=== PATIENT | male | born 1980 | race Caucasian/White ===

== ENCOUNTER 2020-09-20 09:29 | Emergency (ER) | payer OTHER ==
[2020-09-20 09:43] VITALS: BP 130/71
--- NOTE | 2020-09-20 10:14 | ED Physician Documentation ---
History of Present Illness - Stated complaint Stated Complaint: MALE - Chief complaint Chief Complaint: General - History obtained from History obtained from: Patient - Additonal information Additional information: About 2 weeks of groin and pelvic pain, worse with sitting and better with ambulation. He started a keto diet around the same time and was constipated, but has since taken a laxative and that is improved. He notes some bladder spasms and increased urine output but no dysuria per se. No fevers. Review of Systems Ten Systems: 10 systems reviewed and negative Constitutional: denies: Fever, Chills Nose: reports: Reviewed and negative Throat: reports: Reviewed and negative Cardiac: reports: Reviewed and negative PD PAST MEDICAL HISTORY - Present Medications Home Medications: Ambulatory Orders Medication Instructions Recorded Confirmed Ciprofloxacin HCl 1 tablet PO BID 28 Days #56 tablet 09/20/20 - Allergies Allergies/Adverse Reactions: Allergies Allergy/AdvReac Type Severity Reaction Status Date / Time No Known Drug Allergies Allergy Verified 09/20/20 09:43 PD ED PE NORMAL - Vitals Vital signs reviewed: Yes - General General: Alert and oriented X 3, No acute distress - Male Male : Other (Testicles have normal lie, nontender, no hernia mass, no skin changes in the groin. Does have a tender boggy prostate without masses otherwise.) - Neuro Neuro: Alert and oriented X 3, Normal speech Results - Vitals Vitals: Vital Signs - 24 hr 09/20/20 09:39 Temperature 36.5 C Heart Rate 66 Respiratory 14 Rate Blood Pressure 130/71 O2 Saturation 99 Oxygen O2 Source Room air Departure - Departure Disposition: 01 Home, Self Care Clinical Impression: Prostatitis Qualifiers: Prostatitis type: acute Qualified Code(s): N41.0 - Acute prostatitis Condition: Good Record reviewed to determine appropriate education?: Yes Instructions: ED Prostatitis Prescriptions: Ciprofloxacin HCl 1 tablet PO BID 28 Days #56 tablet Comments: As discussed you clinically have prostatitis, and inflammation of the prostate. Should get better quickly with the antibiotics. Return for reevaluation if not better within a few days to week. [place] Also as discussed do not do any high impact exercise given the transient tendon weakness that may happen with the antibiotic.
== END 2020-09-20 10:21 | disposition home or self-care (01) ==
LOC: ED 09:29
DX: N41.0 Acute prostatitis (principal)
CPT/HCPCS: 99282; 99283

== ENCOUNTER 2021-02-06 12:03 | Observation (INO) | payer OTHER ==
[2021-02-06] MEDS ORDERED: PANTOPRAZOLE 40 MG VIAL IVP STA (12:30)
[2021-02-06] MEDS ORDERED: SODIUM CHLORIDE 0.9% 1,000 ML IV STA ×2 (12:31→14:09)
--- NOTE | 2021-02-06 12:39 | ED Physician Documentation ---
PD HPI GI BLEED - Stated complaint Stated Complaint: VOMITING BLOOD, BLACK STOOL, WEAK - Chief complaint Chief Complaint: Abd Pain - History obtained from History obtained from: Patient - History of Present Illness Timing - onset: How many days ago (2) Timing - duration: Days (2) Timing - details: Gradual onset, Still present Associated symptoms: Vomiting, Hematemesis, Black/tarry stool, Abdominal pain, Near syncope / syncope Contributing factors: Recent antibiotics, Alcohol use, NSAID use Improved by: Vomiting Similar symptoms before: Has not had sx before Recently seen: Clinic - Additional information Additional information: 41-year-old male being treated for prostatitis has been taking Naprosyn for the past week as well as drinking his usual bottle of wine per day. Over the past 3 days he is developed a bit of an abdominal discomfort being unable to sleep on his stomach. He began to have vomiting last night he has vomited some blood today as well as developing dark tarry stool yesterday. Is feeling weak and dizzy and in the triage area the patient had an event of decreased responsiveness was stiff and wet himself. He presents to the emergency department pale and with altered level of consciousness. This resolves with supine positioning. Review of Systems Constitutional: denies: Fever Eyes: denies: Decreased vision Ears: denies: Ear pain Nose: denies: Congestion Throat: denies: Sore throat Cardiac: denies: Chest pain / pressure, Palpitations Respiratory: denies: Dyspnea GI: reports: Abdominal Pain, Nausea, Vomiting, Bloody / black stool : denies: Dysuria, Frequency Skin: denies: Rash Musculoskeletal: denies: Neck pain, Back pain, Extremity pain Neurologic: reports: Generalized weakness, Seizure, Confused. denies: Focal weakness, Numbness PD PAST MEDICAL HISTORY - Present Medications Home Medications: Ambulatory Orders Medication Instructions Recorded Confirmed Ciprofloxacin HCl 1 tablet PO BID 28 Days #56 tablet 09/20/20 - Allergies Allergies/Adverse Reactions: Allergies Allergy/AdvReac Type Severity Reaction Status Date / Time No Known Drug Allergies Allergy Verified 02/06/21 12:23 - Social History Does the pt smoke?: No Smoking Status: Never smoker PD ED PE NORMAL - Vitals Vital signs reviewed: Yes (tachy ) - General General: Well developed/nourished, Other (Initial evaluation patient with pale lips and not interactive. Appears to be siezing. This resolves and the patient is placed into a bed supine with recovery. ) - HEENT HEENT: Atraumatic, PERRL, EOMI, Other (pale lips and conjunctiva) - Neck Neck: Supple, no meningeal sign, No bony TTP - Cardiac Cardiac: No murmur, Other (tachy to 120) - Respiratory Respiratory: No respiratory distress, Clear bilaterally - Abdomen Abdomen: Normal bowel sounds, Soft, Non tender, Non distended, No organomegaly - Derm Derm: Warm and dry, No rash, Other (pale and clammy) - Extremities Extremities: No deformity, No edema - Neuro Neuro: Alert and oriented X 3, ice sculptor 2-12 intact, No motor deficit, No sensory deficit, Normal speech Eye Opening: Spontaneous Motor: Obeys Commands Verbal: Oriented GCS Score: 15 - Psych Psych: Normal mood, Normal affect Results - Vitals Vitals: Vital Signs - 24 hr 02/06/21 02/06/21 02/06/21 12:12 12:23 12:24 Temperature 37.0 C Heart Rate 119 H 84 84 Heart Rate [ Sitting] Heart Rate [ Standing] Heart Rate [ Supine] Respiratory 18 23 21 Rate Blood Pressure 105/69 111/69 117/63 Blood Pressure [Sitting] Blood Pressure [Standing] Blood Pressure [Supine] O2 Saturation 99 99 96 02/06/21 02/06/21 02/06/21 12:54 13:24 14:00 Temperature Heart Rate 94 62 82 Heart Rate [ Sitting] Heart Rate [ Standing] Heart Rate [ Supine] Respiratory 24 27 H 20 Rate Blood Pressure 124/73 105/58 L 121/68 Blood Pressure [Sitting] Blood Pressure [Standing] Blood Pressure [Supine] O2 Saturation 97 99 98 02/06/21 02/06/21 02/06/21 14:30 15:00 15:30 Temperature Heart Rate 77 77 97 Heart Rate [ Sitting] Heart Rate [ Standing] Heart Rate [ Supine] Respiratory 24 23 22 Rate Blood Pressure 121/52 L 104/58 L 110/73 Blood Pressure [Sitting] Blood Pressure [Standing] Blood Pressure [Supine] O2 Saturation 96 97 99 02/06/21 02/06/21 15:37 16:00 Temperature Heart Rate 86 Heart Rate [ 109 H Sitting] Heart Rate [ 120 H Standing] Heart Rate [ 98 Supine] Respiratory 17 Rate Blood Pressure 116/58 L Blood Pressure 125/77 [Sitting] Blood Pressure 117/66 [Standing] Blood Pressure 134/72 H [Supine] O2 Saturation 97 Oxygen O2 Source Room air - Labs Labs: Laboratory Tests 02/06/21 02/06/21 02/06/21 12:30 12:30 12:30 WBC 17.8 H RBC 3.34 L Hgb 10.7 L Hct 32.2 L MCV 96.4 H MCH 32.0 H MCHC 33.2 RDW 12.4 Plt Count 255 MPV 10.8 Neut # (Auto) 14.1 H Lymph # (Auto) 2.4 [place] # (Auto) 1.1 H Eos # (Auto) 0.0 Baso # (Auto) 0.1 Absolute Nucleated RBC 0.00 Nucleated RBC % 0.0 PT 11.8 INR 1.1 APTT 22.9 L Sodium 134 L Potassium 4.7 Chloride 102 Carbon Dioxide 22 Anion Gap 10.0 BUN 55 H Creatinine 0.9 Estimated GFR (MDRD) 93 Glucose 173 H Calcium 8.4 L Total Bilirubin 1.3 H AST 23 ALT 45 Alkaline Phosphatase 67 Total Protein 6.6 L Albumin 3.7 Globulin 2.9 Albumin/Globulin Ratio 1.3 Lipase 18 L Urine Color Urine Clarity Urine pH Ur Specific [place] Urine Protein Urine Glucose (UA) Urine Ketones Urine Occult Blood Urine Nitrite Urine Bilirubin Urine Urobilinogen Ur Leukocyte Esterase Ur Microscopic Review Urine Culture Comments Nasal Adenovirus (PCR) Nasal B. parapertussis DNA (PCR) Nasal Coronavir 229E PCR Nasal Coronavir HKU1 PCR Nasal Coronavir NL63 PCR Nasal Coronavir OC43 PCR Nasal Enterovir/Rhinovir PCR Nasal Influenza B PCR Nasal Influenza A PCR Nasal Parainfluen 1 PCR Nasal Parainfluen 2 PCR Nasal Parainfluen 3 PCR Nasal Parainfluen 4 PCR Nasal RSV (PCR) Nasal B.pertussis DNA PCR Nasal C.pneumoniae (PCR) [place] Human Metapneumo PCR Nasal M.pneumoniae (PCR) Nasal SARS-CoV-2 (PCR) Ethyl Alcohol Blood Type Blood Type Recheck Antibody Screen Crossmatch IS Only 02/06/21 02/06/21 02/06/21 12:30 12:34 12:45 WBC RBC Hgb Hct MCV MCH MCHC RDW Plt Count MPV Neut # (Auto) Lymph # (Auto) [place] # (Auto) Eos # (Auto) Baso # (Auto) Absolute Nucleated RBC Nucleated RBC % PT INR APTT Sodium Potassium Chloride Carbon Dioxide Anion Gap BUN Creatinine Estimated GFR (MDRD) Glucose Calcium Total Bilirubin AST ALT Alkaline Phosphatase Total Protein Albumin Globulin Albumin/Globulin Ratio Lipase Urine Color Urine Clarity Urine pH Ur Specific [place] Urine Protein Urine Glucose (UA) Urine Ketones Urine Occult Blood Urine Nitrite Urine Bilirubin Urine Urobilinogen Ur Leukocyte Esterase Ur Microscopic Review Urine Culture Comments Nasal Adenovirus (PCR) NOT DETECTED Nasal B. parapertussis DNA (PCR) NOT DETECTED Nasal Coronavir 229E PCR NOT DETECTED Nasal Coronavir HKU1 PCR NOT DETECTED Nasal Coronavir NL63 PCR NOT DETECTED Nasal Coronavir OC43 PCR NOT DETECTED Nasal Enterovir/Rhinovir PCR NOT DETECTED Nasal Influenza B PCR NOT DETECTED Nasal Influenza A PCR NOT DETECTED Nasal Parainfluen 1 PCR NOT DETECTED Nasal Parainfluen 2 PCR NOT DETECTED Nasal Parainfluen 3 PCR NOT DETECTED Nasal Parainfluen 4 PCR NOT DETECTED Nasal RSV (PCR) NOT DETECTED Nasal B.pertussis DNA PCR NOT DETECTED Nasal C.pneumoniae (PCR) NOT DETECTED [place] Human Metapneumo PCR NOT DETECTED Nasal M.pneumoniae (PCR) NOT DETECTED Nasal SARS-CoV-2 (PCR) NOT DETECTED Ethyl Alcohol < 5.0 Blood Type O POSITIVE Blood Type Recheck Antibody Screen NEGATIVE Crossmatch IS Only See Detail 02/06/21 02/06/21 02/06/21 13:26 15:00 15:34 WBC RBC Hgb 10.0 L Hct 30.0 L MCV MCH MCHC RDW Plt Count MPV Neut # (Auto) Lymph # (Auto) [place] # (Auto) Eos # (Auto) Baso # (Auto) Absolute Nucleated RBC Nucleated RBC % PT INR APTT Sodium Potassium Chloride Carbon Dioxide Anion Gap BUN Creatinine Estimated GFR (MDRD) Glucose Calcium Total Bilirubin AST ALT Alkaline Phosphatase Total Protein Albumin Globulin Albumin/Globulin Ratio Lipase Urine Color YELLOW Urine Clarity CLEAR Urine pH 5.5 Ur Specific [place] 1.010 Urine Protein NEGATIVE Urine Glucose (UA) NEGATIVE Urine Ketones 15 H Urine Occult Blood NEGATIVE Urine Nitrite NEGATIVE Urine Bilirubin NEGATIVE Urine Urobilinogen 0.2 (NORMAL) Ur Leukocyte Esterase NEGATIVE Ur Microscopic Review NOT INDICATED Urine Culture Comments NOT INDICATED Nasal Adenovirus (PCR) Nasal B. parapertussis DNA (PCR) Nasal Coronavir 229E PCR Nasal Coronavir HKU1 PCR Nasal Coronavir NL63 PCR Nasal Coronavir OC43 PCR Nasal Enterovir/Rhinovir PCR Nasal Influenza B PCR Nasal Influenza A PCR Nasal Parainfluen 1 PCR Nasal Parainfluen 2 PCR Nasal Parainfluen 3 PCR Nasal Parainfluen 4 PCR Nasal RSV (PCR) Nasal B.pertussis DNA PCR Nasal C.pneumoniae (PCR) [place] Human Metapneumo PCR Nasal M.pneumoniae (PCR) Nasal SARS-CoV-2 (PCR) Ethyl Alcohol Blood Type Blood Type Recheck O POSITIVE Antibody Screen Crossmatch IS Only Procedures - IVC sono (time) 1327 Bedside IVC sono: IVC measures (cm) (0.75), Dehydration (est 2+ liter deficit after 500ml in.) PD MEDICAL DECISION MAKING - ED course Complexity details: reviewed old records, reviewed results, re-evaluated patient, considered differential, d/w patient ED course: I was called in urgently to the patient's room when he had an episode at triage of unresponsiveness when I arrived into the emergency department room the patient appeared pale and diaphoretic and he had wet himself. He was not initially responding he did respond in less than 30 seconds and he is placed supine onto a gurney and 2 IVs were placed fluid was begun. He did not at any time have hypotension and his heart rate peaked at about 120. His initial H&H were robust and he was hydrated further and labs repeated. Blood counts appear stable. He remains orthostatic after 2 liters with a heart rate of 120 standing and a wide pulse pressure. He has been given IV protonix. Despite pale lips the patient reports he feels improved. Dr. Okeefe was consulted in the case and has graciously agreed to care for the patient in the hospital. - Critical Care Time Includes: Direct patient care, Review records, Reassess patient, Document care, Coordinate care, Medical consult Data interpretation: Labs, Pulse ox Procedures included in critical care time: See progress note (interrogation of IVC) Departure - Departure Disposition: ED Place in Observation Clinical Impression: GI bleeding Qualifiers: GI bleed type/associated pathology: gastrointestinal hemorrhage with hematemesis Qualified Code(s): K92.0 - Hematemesis Condition: Serious
[2021-02-06 12:50] LABS: BASOPHILS # (AUTO) 0.1 10^3/uL (0.0-0.1); BASOPHILS % (AUTO) 0.4 %; EOSINOPHILS % (AUTO) 0.1 %; HCT - HEMATOCRIT 32.2 % (42.0-52.0); HGB - HEMOGLOBIN 10.7 g/dL (14.0-18.0); LYMPHOCYTES # (AUTO) 2.4 10^3/uL (1.5-3.5); LYMPHOCYTES % (AUTO) 13.2 %; MEAN CORPUSCULAR HGB CONC 33.2 g/dL (32.0-36.0); MEAN CORPUSCULAR VOLUME 96.4 fL (80.0-94.0); MEAN PLATELET VOLUME 10.8 fL (7.4-11.4); MONOCYTES # (AUTO) 1.1 10^3/uL (0.0-1.0); MONOCYTES % (AUTO) 6.4 %; NEUTROPHILS # (AUTO) 14.1 10^3/uL (1.5-6.6); NEUTROPHILS % (AUTO) 79.2 %; PLT - PLATELET COUNT 255 10^3/uL (130-450); RED BLOOD COUNT 3.34 10^6/uL (4.70-6.10); RED CELL DISTRIBUTION WIDTH 12.4 % (12.0-15.0); WHITE BLOOD COUNT 17.8 x10^3/uL (4.8-10.8)
[2021-02-06 12:56] LABS: ALBUMIN 3.7 g/dL (3.2-5.5); ALBUMIN/GLOBULIN RATIO 1.3 (1.0-2.2); BILIRUBIN,TOTAL 1.3 mg/dL (0.2-1.0); CALCIUM 8.4 mg/dL (8.5-10.3); CREATININE 0.9 mg/dL (0.6-1.2); POTASSIUM 4.7 mmol/L (3.5-5.0); TOTAL PROTEIN 6.6 g/dL (6.7-8.2)
[2021-02-06 14:06] LABS: INR 1.1 (0.8-1.2); PT - PROTHROMBIN TIME 11.8 secs (9.9-12.6)
[2021-02-06 14:11] LABS: B. PARAPERTUSSIS- RESP PCR PAN NOT DETECTED; B. PERTUSSIS- RESP PCR PANEL NOT DETECTED; C. PNEUMONIAE- RESP PCR PANEL NOT DETECTED; CORONAVIRUS 229E-RESP PCR NOT DETECTED; CORONAVIRUS HKU1-RESP PCR NOT DETECTED; CORONAVIRUS NL63-RESP PCR NOT DETECTED; CORONAVIRUS OC43-RESP PCR NOT DETECTED; HUMAN METAPNEUMOVIRUS NOT DETECTED; INFLUENZA A- RESP PCR PANEL NOT DETECTED; INFLUENZA B - RESP PCR PANEL NOT DETECTED; M. PNEUMONIAE- RESP PCR PANEL NOT DETECTED; PARAINFLUENZA VIRUS 1 NOT DETECTED; PARAINFLUENZA VIRUS 2 NOT DETECTED; PARAINFLUENZA VIRUS 3 NOT DETECTED; PARAINFLUENZA VIRUS 4 NOT DETECTED; RHINOVIRUS/ENTEROVIRUS NOT DETECTED; RSV- RESP PCR PANEL NOT DETECTED; SARS-CoV-2 -RESP PCR PANEL NOT DETECTED
[2021-02-06 14:14] LABS: PARTIAL THROMBOPLASTIN TIME 22.9 secs (24.9-33.3)
[2021-02-06] MEDS ORDERED: ACETAMINOPHEN 325 MG TABLET PO PRN (15:46)
[2021-02-06] MEDS ORDERED: ONDANSETRON 4 MG/2 ML VIAL IVP PRN (15:46)
[2021-02-06] MEDS ORDERED: MORPHINE 2 MG/ML CARPUJECT IVP PRN (15:46)
[2021-02-06] MEDS ORDERED: SODIUM CHLORIDE FLUSH 0.9% 10 ML SYRINGE IVP PRN (15:46)
[2021-02-06] MEDS ORDERED: ONDANSETRON ODT 4 MG TABLET TL PRN (15:46)
[2021-02-06] MEDS ORDERED: oxyCODONE 5 MG TABLET PO PRN (15:46)
[2021-02-06 15:53] LABS: BILIRUBIN,URINE NEGATIVE (NEGATIVE); GLUCOSE, URINE (UA) NEGATIVE (NEGATIVE); KETONES,URINE (UA) 15 mg/dL (NEGATIVE); LEUKOCYTE ESTERASE, URINE NEGATIVE (NEGATIVE); NITRITE,URINE NEGATIVE (NEGATIVE); OCCULT BLOOD,URINE NEGATIVE (NEGATIVE); PH,URINE 5.5 PH (5.0-7.5); PROTEIN,URINE NEGATIVE (NEGATIVE); UROBILINOGEN,URINE 0.2 (NORMAL) E.U./dL (NORMAL)
[2021-02-06 15:59] LABS: CLARITY,URINE CLEAR (CLEAR)
[2021-02-06] MEDS: LACTATED RINGERS 1,000 ML IV SCH ×2 (16:45→20:07)
[2021-02-06] MEDS ORDERED: MIDAZOLAM 2 MG/2 ML VIAL ONE (16:45)
[2021-02-06] MEDS ORDERED: fentaNYL 100 MCG/2 ML VIAL ONE (16:46)
--- NOTE | 2021-02-06 16:46 | ANESTHESIA ---
Pre-Anesthesia VS, & Labs - Diagnosis upper GI bleed - Procedure EGD Vital Signs: Temp Pulse Resp BP Pulse Ox 37.0 C 107 H 21 106/86 H 98 02/06/21 12:12 02/06/21 16:30 02/06/21 16:30 02/06/21 16:30 02/06/21 16:30 Height: 6 ft Weight (kg): 108.862 kg Body Mass Index: 32.5 BMI Classification: Obese - NPO >8 hours - Lab Results Current Lab Results: Laboratory Tests 02/06/21 15:00: Hgb 10.0 L, Hct 30.0 L 02/06/21 13:26: Blood Type Recheck O POSITIVE 02/06/21 12:45: Blood Type O POSITIVE, Antibody Screen NEGATIVE, Crossmatch IS Only See Detail 02/06/21 12:30: Ethyl Alcohol < 5.0 02/06/21 12:30: PT 11.8, INR 1.1, APTT 22.9 L 02/06/21 12:30: Sodium 134 L, Potassium 4.7, Chloride 102, Carbon Dioxide 22, Anion Gap 10.0, BUN 55 H, Creatinine 0.9, Estimated GFR (MDRD) 93, Glucose 173 H , Calcium 8.4 L, Total Bilirubin 1.3 H, AST 23, ALT 45, Alkaline Phosphatase 67, Total Protein 6.6 L, Albumin 3.7, Globulin 2.9, Albumin/Globulin Ratio 1.3, Lipase 18 L 02/06/21 12:30: WBC 17.8 H, RBC 3.34 L, Hgb 10.7 L, Hct 32.2 L, MCV 96.4 H, MCH 32.0 H, MCHC 33.2, RDW 12.4, Plt Count 255, MPV 10.8, Neut # (Auto) 14.1 H, Lymph # (Auto) 2.4, [place] # (Auto) 1.1 H, Eos # (Auto) 0.0, Baso # (Auto) 0.1, Absolute Nucleated RBC 0.00, Nucleated RBC % 0.0 Fish Bones: 02/06/21 15:00 02/06/21 12:30 Home Medications and Allergies Active Medications Acetaminophen (Acetaminophen 325 Mg Tablet) 650 mg PO Q4HR PRN PRN Reason: Pain 1 to 4 Lactated Ringer's (Lr) 1,000 mls @ 100 mls/hr IV .Q10H ATA Morphine Sulfate (Morphine 2 Mg/Ml Carpuject) 2 mg IVP Q2HR PRN PRN Reason: Pain 8 to 10 Ondansetron HCl (Ondansetron Odt 4 Mg Tablet) 4 mg TL Q6HR PRN PRN Reason: Nausea / Vomiting Ondansetron HCl (Ondansetron 4 Mg/2 Ml Vial) 4 mg IVP Q6HR PRN PRN Reason: Nausea / Vomiting Oxycodone HCl (Oxycodone 5 Mg Tablet) 5 mg PO Q4HR PRN PRN Reason: Pain 5 to 7 Pantoprazole Sodium (Pantoprazole 40 Mg Vial) 40 mg IVP BID ATA Sodium Chloride (Sodium Chloride Flush 0.9% 10 Ml Syringe) 10 ml IVP PRN PRN PRN Reason: NEEDED PER PROVIDER ORDERS Sodium Chloride (Sodium Chloride Flush 0.9% 10 Ml Syringe) 10 ml IVP 0100 ,0900,1700 [facility] Allergies/Adverse Reactions: Allergies Allergy/AdvReac Type Severity Reaction Status Date / Time No Known Drug Allergies Allergy Verified 02/06/21 12:23 Anes History & Medical History - Anesthetic History Anesthesia Complications: reports: No previous complications Family history of Anesthesia Complications: Denies Family history of Malignant Hyperthermia: Denies - Medical History Smoking Status: Never smoker Psychosocial: reports: Alcohol History of Cancer?: No Exam General: Alert, Oriented x3, Cooperative Dental: WNL Mouth Openin Fingerbreadth Neck Mobility: Normal Mallampati classification: II Thyromental Distance: less than 4 cm Respiratory: Lungs clear, Normal breath sounds, No respiratory distress Cardiovascular: Regular rate (tachy) Neurological: Normal speech Mental/Cognitive Status: Alert/Oriented X3, Normal for patient Cognitive Status: Within normal limits Plan Anesthesia Type: Total IV Consent for Procedure(s) Verified and Reviewed: Yes Code Status: Attempt Resuscitation ASA classification: 2-Mild systemic disease Is this case an emergency?: Yes
[2021-02-06] MEDS ORDERED: PROPOFOL 200 MG/20 ML VIAL IVP ONE (16:47)
--- NOTE | 2021-02-06 16:48 | HISTORY & PHYSICAL EXAMINATION ---
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 He drinks 2 glasses of wine a day. Does not smoke. Starting in August of this year began having urgency, frequency, and rectal pain. Pain in the perineum. He was treated as prostatitis by the ER and was seen in follow-up by the [facility]. Even though he took a month of antibiotics, he finds that he still has constant daily nagging pain in the perineum and base of his testicles. He describes it as the circular ring of a cough he can around the base of his testicles and that is where the pain is. It hurts to sit. It is enough of a discomfort that it has made him mildly depressed. Its affect his sex life with his . And is affected his marriage. He had blood work and a urinalysis done recently by the [facility] again in follow-up since he is still having that problem. He was put on Cipro and has been taking Naprosyn for the pain. About 3 days ago he started developing darker and darker stools. Yesterday diffuse generalized abdominal ache predominantly in the lower half of his abdomen. It hurt to lay down on his stomach last night. Yesterday his stool was melanotic. Today he has been vomiting and had an episode of vomiting blood. He came to the emergency room, and had an episode where his body stiffened, his eyes rolled back and he lost consciousness with urinary incontinence. It lasted a moment. There was no tonic-clonic movement. And he was immediately alert when he regained consciousness moments later. Temperature was 37. Heart rate 119. Blood pressure 105/69. Respirations 18. 99% on room air. After the episode of syncope they did orthostatics and his blood pressure was 134/72 supine. 125/77 sitting. And 117/66 standing. Heart rate for from 98 to then 109 to then 120. So he was orthostatic. He is alert and oriented. Obeying commands. Has normal bowel sounds. Is soft, nontender abdomen. No organomegaly. Hemoglobin was 10.7. 3 hours later was 10.0. We are asked to place him in observation status for ruling out a GI bleed, and for possible EGD with general surgery. The patient states he is never had problems with alcohol withdrawal, seizures, delirium tremens. History - Past Medical History Cardiovascular: reports: None Respiratory: reports: None Neuro: reports: None Endocrine/Autoimmune: reports: None GI: reports: GERD (Daily indigestion getting worse over the last few weeks.) : reports: Other (Prostatitis August 2020) HEENT: reports: None Psych: reports: None Musculoskeletal: reports: None Derm: reports: Other (Skin tag right posterior thigh that has been present for years and getting larger) - Family & Social History Family History Comment/Other: At age 65. He had prostate cancer and of a heart attack. Mom is alive, healthy at 67 without any major medical illnesses. Siblings healthy. 3 children are healthy. Living arrangement: At home Living Situation: With spouse/s.o., With family Social History Notes: From [place]. He is career [employer]. Has 1 more duty station after this and then he can retire. Does not smoke. Never did. Has no history of recreational substance abuse. Does drink up to 2 glasses of wine a day. He denies that anyone is asked him to stop drinking. He states his drinks as much as he does. Neck duty station will be [place] starting next summer. Has 3 children at home. Two are teenagers and one is a 5-year-old. - Substance History Use: Uses substance without health or social issues: Alcohol Abuse: Recurrent use of substance despite neg consequences: NONE Dependence: Experiences withdrawal or developed tolerances: NONE - POLST Patient has POLST: No POLST Status: Full Code Meds/Allgy - Home Medications Home Medications: Ambulatory Orders Medication Instructions Recorded Confirmed Ciprofloxacin HCl 1 tablet PO BID 28 Days #56 tablet 09/20/20 - Allergies Allergies/Adverse Reactions: Allergies Allergy/AdvReac Type Severity Reaction Status Date / Time No Known Drug Allergies Allergy Verified 02/06/21 12:23 Review of Systems - Constitutional Constitutional: reports: Fatigue, Poor appetite. denies: Fever, Chills, Malaise - Eyes Eyes: denies: Pain, Irritation, Amaurosis, Blurred vision, Vision loss, Dipolpia - Ears, Nose & Throat Ears, Nose & Throat: denies: Hearing loss, Hearing aids, Nasal obstruction, Nasal congestion, Postnasal drainage, Sore throat, Hoarseness - Cardiovascular Cariovascular: reports: Lightheadedness, Syncope. denies: Irregular heart rate, Palpitations, Chest pain, Edema, Exertional dyspnea, Decr. exercise tolerance - Respiratory Respiratory: denies: Cough, Sputum production, Wheezing, Snoring, SOB at rest, SOB with exertion - Gastrointestinal Gastrointestinal: reports: Abdominal pain (Mild to moderate, generalized starting last night. Hurt to lay on his abdomen.), Black stools, Nausea, Vomiting, Deepa blood emesis, Reflux/heartburn, Bloating. denies: Diarrhea, Rectal bleeding, Coffee grounds emesis, Poor appetite - Genitourinary Genitourinary: reports: Dysuria, Frequency, Urgency - Musculoskeletal Musculoskeletal: denies: Muscle pain, Back pain, Muscle aches, Stiffness - Integumentary Integumentary: denies: Rash, Pruritis, Lesions - Neurological Neurological: denies: General weakness, Focal weakness, Headache, Dizziness, Memory problems, Pre-existing deficit - Psychiatric Psychiatric: reports: Depression (with this chronic pelvic pain). denies: Anxiety, Suicidal - Endocrine Endocrine: denies: Polyuria, Polydypsia, Polyphagia, Intolerance to cold - Hematologic/Lymphatic Hematologic/Lymphatic: denies: Anemia, Bruising, Petechiae Prior Level of Functionality: Works full-time, no use of durable medical equipment, has 3 kids at home. He and his live in their own home. Exam - Vital Signs Reviewed Vital Signs: Yes Vital Signs: Vital Signs x48h Temp Pulse Pulse Pulse Pulse Resp BP 02/06/21 16:30 107 H 21 106/86 H 02/06/21 16:00 86 17 116/58 L 02/06/21 15:37 109 H 120 H 98 02/06/21 15:30 97 22 110/73 02/06/21 15:00 77 23 104/58 L 02/06/21 14:30 77 24 121/52 L 02/06/21 14:00 82 20 121/68 02/06/21 13:24 62 27 H 105/58 L 02/06/21 12:54 94 24 124/73 02/06/21 12:24 84 21 117/63 02/06/21 12:23 84 23 111/69 02/06/21 12:12 37.0 C 119 H 18 105/69 BP BP BP Pulse Ox 02/06/21 16:30 98 02/06/21 16:00 97 02/06/21 15:37 125/77 117/66 134/72 H 02/06/21 15:30 99 02/06/21 15:00 97 02/06/21 14:30 96 02/06/21 14:00 98 02/06/21 13:24 99 02/06/21 12:54 97 02/06/21 12:24 96 02/06/21 12:23 99 02/06/21 12:12 99 - Physical Exam General Appearance: positive: Other (Asleep, mouth open breathing, snoring, when I woke him up with my voice and he is immediately alert and apologizes for sleeping during the day. No acute distress. Pale, fatigued appearing) Eyes Bilateral: positive: PERRL, EOMI ENT: positive: No signs of dehydration Neck: positive: No JVD. negative: Stiff neck Respiratory: positive: No respiratory distress. negative: Wheezes, Rales, Rhonchi Cardiovascular: positive: Regular rate & rhythm. negative: Systolic murmur, Gallop/S4, Friction rub Peripheral Pulses: positive: 1+ Abdomen: positive: No organomegaly, Nml bowel sounds, No distention, Tenderness (Diffuse, but has bowel sounds. Large obese pannus.) Skin: positive: Warm, Dry, Pallor, Other (Right posterior thigh with a large skin tag and the base is probably 3 mm.) Extremities: positive: Non-tender, Full ROM, No pedal edema Neurologic/Psychiatric: positive: Oriented x3, CN's nml (2-12), Motor nml, Sensation nml Conclusion/Plan - Problem List (1) Hematemesis Conclusion/Plan: My suspicion is that his wine, and nonsteroidal therapy have induced gastritis. May be a deepa ulcer. I do worry about alcohol abuse, but he is fairly clear in stating that he does not drink more than about 2 a day. And no one's been worried about his drinking in the past. At the worst possible scenario, this gentleman could have long-term alcoholic cirrhosis with esophageal varices but unlikely. He has never had problems like this before. Plan: Observation status General surgery consult for EGD Proton pump inhibitor twice daily N.p.o. if he is going to the OR tonight, clear liquids with n.p.o. status at midnight if he is going to the OR tomorrow Check hemogram every 8 hours. He is amenable to transfusion if he reaches the criteria of less than 7 g of hemoglobin. I did explain about the risk of infection, blood transfusion reaction, and he is amenable to still getting blood transfused if needed. Qualifiers: Nausea presence: with nausea Qualified Code(s): K92.0 - Hematemesis (2) Pelvic pain in male Conclusion/Plan: Ongoing since August of this year. Never fully resolved with the treatment for prostatitis. Dad had a history of prostate cancer. Plan: PSA CT of pelvis (3) Acute blood loss anemia Conclusion/Plan: check hemogram and transfuse if less than 7 grams - Lab Results Fish Bones: 02/06/21 15:00 02/06/21 12:30
--- NOTE | 2021-02-06 16:54 | CONSULTATION NOTE ---
Referring Provider Consult Date: 02/06/21 Chief Complaint - Chief Complaint Chief Complaint: vomit blood today History of Present Illness - Admitted From Admitted From:: ed - History Obtained From Records Reviewed: yes History obtained from: pt Exam Limitations: none - History of Present Illness HPI Comment/Other: Started prescription nsaid last week. No history prior ulcer disease. Does not take antacids. Developed epigastric pain a few days ago and darker stool which has progressed to black stool, bloody emesis and loss of appetite. Nothing to eat today. History - Past Medical History Cardiovascular: reports: None Respiratory: reports: None Neuro: reports: None Endocrine/Autoimmune: reports: None GI: reports: GERD (Daily indigestion getting worse over the last few weeks.) Meds/Allgy - Home Medications Home Medications: Ambulatory Orders Medication Instructions Recorded Confirmed Ciprofloxacin HCl 1 tablet PO BID 28 Days #56 tablet 09/20/20 - Allergies Allergies/Adverse Reactions: Allergies Allergy/AdvReac Type Severity Reaction Status Date / Time No Known Drug Allergies Allergy Verified 02/06/21 12:23 Review of Systems - Other Findings Other Findings: 10 pt ros as above otherwise unremarkable Exam - Vital Signs Reviewed Vital Signs: Yes Vital Signs: Vital Signs x48h Temp Pulse Pulse Pulse Pulse Resp BP 02/06/21 16:30 107 H 21 106/86 H 02/06/21 16:00 86 17 116/58 L 02/06/21 15:37 109 H 120 H 98 02/06/21 15:30 97 22 110/73 02/06/21 15:00 77 23 104/58 L 02/06/21 14:30 77 24 121/52 L 02/06/21 14:00 82 20 121/68 02/06/21 13:24 62 27 H 105/58 L 02/06/21 12:54 94 24 124/73 02/06/21 12:24 84 21 117/63 02/06/21 12:23 84 23 111/69 02/06/21 12:12 37.0 C 119 H 18 105/69 BP BP BP Pulse Ox 02/06/21 16:30 98 02/06/21 16:00 97 02/06/21 15:37 125/77 117/66 134/72 H 02/06/21 15:30 99 02/06/21 15:00 97 02/06/21 14:30 96 02/06/21 14:00 98 02/06/21 13:24 99 02/06/21 12:54 97 02/06/21 12:24 96 02/06/21 12:23 99 02/06/21 12:12 99 - Physical Exam General Appearance: positive: No acute distress, Alert Eyes Bilateral: positive: PERRL, EOMI ENT: positive: No signs of dehydration Neck: positive: No JVD Respiratory: positive: No respiratory distress, Breath sounds nml Cardiovascular: positive: Regular rate & rhythm Abdomen: positive: No distention, Other (mild epigastric tenderness) Neurologic/Psychiatric: positive: Oriented x3 Conclusion/Plan - Lab Results Fish Bones: 02/06/21 15:00 02/06/21 12:30 - Other Other Results/Comments: upper gi bleed plan egd with biopsy, possible clipping vessel. parq held and consent obtained
[2021-02-06] MEDS ORDERED: LIDO GARGLE 30 ML BOTTLE ONE (17:00)
--- NOTE | 2021-02-06 17:49 | OPERATIVE REPORT ---
Operative Report - General Admit Date: 02/06/21 Procedure Date: 02/06/21 Planned Procedure: egd Pre-Op Diagnosis: upper gi bleed Procedure Performed: egd with biopsies Post Op Diagnosis: small ulcer ge junction with clot. no active bleeding - Procedure Note Primary Surgeon: doretha sommers Anesthesia Technique: Local, MAC Pathology: antrum, ge junction, distal esophagus, ectopic gastric mucosa proximal esophagus Estimated Blood Loss (mL): 2 Indications: ugi bleed Findings: as above. mild gastritis without bleeding. normal duodenum. no hiatal hernia. Complications: none
--- NOTE | 2021-02-06 17:50 | ANESTHESIA POST OP EVALUATION ---
Anesthesia Post Eval - Post Anesthesia Eval Vitals: Last Vital Signs Temp 37.0 C 02/06/21 12:12 Pulse 110 H 02/06/21 17:00 Resp 16 02/06/21 17:00 BP 139/70 H 02/06/21 17:00 Pulse Ox 96 02/06/21 17:00 CV Function Including HR & BP: Stable Pain Control: Satisfactory Nausea & Vomiting: Negative Mental Status: Baseline Respiratory Status: Airway Patent Hydration Status: Satisfactory Anesthesia Complications: None
[2021-02-06] MEDS: SODIUM CHLORIDE FLUSH 0.9% 10 ML SYRINGE IVP SCH (18:14)
[2021-02-06] MEDS ORDERED: IOPAMIDOL-300 100 ML VIAL ONE (18:55)
--- NOTE | 2021-02-06 18:56 | PHARMACY PROGRESS NOTE ---
- Best Possible Medication History Admit Date and Time: 02/06/21 1546 Processed by: Pharmacy Medication History completed: Yes Patient Interview: Completed As the person ultimately responsible for medication therapy, providers are able to order a medication from an existing home medication list in [facility] via the "Reconcile Routine" prior to Confirmation of that medication by underwriting support manager. Such practice is discouraged except when the physician, in their clinical steph gment, deems that a medical need exists for a medication without regard to previous use.
[2021-02-06] MEDS ORDERED: IOPAMIDOL-300 100 ML VIAL IVP ONE (19:20)
[2021-02-06] MEDS: PANTOPRAZOLE 40 MG VIAL IVP SCH (20:07)
--- NOTE | 2021-02-06 20:59 | CT Report ---
PROCEDURE: PELVIS W INDICATIONS: pelvic, perineal, testicular pain since September CONTRAST: IV CONTRAST: Isovue 300 ml: 100 PO CONTRAST: *NO PO CONTRAST TECHNIQUE: After the administration of intravenous contrast, 5 mm thick sections acquired from the iliac crests to the symphysis. 5 mm thick coronal and sagittal reformats were acquired. For radiation dose reduc tion, the following was used: automated exposure control, adjustment of mA and/or kV according to pa tient size. COMPARISON: None FINDINGS: Image quality: Excellent. Peritoneum and bowel: Contrast enhanced bowel loops demonstrate normal wall thickness and caliber. No free fluid or air. Genitourinary: Bladder wall thickness is normal. Presumed vasectomy clips adjacent to the testes. Nodes and vessels: No iliac, pelvic, or inguinal adenopathy. Iliac vessels demonstrate normal size and enhancement. Bones: No suspicious bony lesions. Miscellaneous: No inguinal hernias. IMPRESSION: Normal examination. Patient appears to be status post vasectomy. Consider a scrotal ultrasound on a nonemergent outpatien t basis if there is concern for a potential scrotal cause of the pain such as varicocele. Reviewed by: Huey Valladares MD on 02/06/2021 8:58 PM PST Approved by: Huey Valladares MD on 02/06/2021 8:58 PM PST Station ID: [id number]
[2021-02-06 21:27] LABS: HGB - HEMOGLOBIN 8.9 g/dL (14.0-18.0); MEAN CORPUSCULAR HEMOGLOBIN 31.4 pg (27.0-31.0); MEAN CORPUSCULAR VOLUME 95.4 fL (80.0-94.0); MEAN PLATELET VOLUME 9.8 fL (7.4-11.4); RED BLOOD COUNT 2.83 10^6/uL (4.70-6.10); RED CELL DISTRIBUTION WIDTH 12.6 % (12.0-15.0); WHITE BLOOD COUNT 9.8 x10^3/uL (4.8-10.8)
[2021-02-07] MEDS: SODIUM CHLORIDE FLUSH 0.9% 10 ML SYRINGE IVP SCH ×2 (00:05→10:16)
--- NOTE | 2021-02-07 01:14 | XRAY Report ---
PROCEDURE: Chest 1 View X-Ray INDICATIONS: Fever. Tachycardia. COMMENTS: RIGHT AB PAIN 2 DAYS. NAUSEA AND VOMITING. FEVER. P RIORS: NONE TECHNIQUE: One view of the chest was acquired. COMPARISON: None FINDINGS: Surgical changes and devices: None. Lungs and pleura: No pleural effusions or pneumothorax. Lungs are clear. Mediastinum: Mediastinal contours appear normal. Heart size is normal. Bones and chest wall: No suspicious bony lesions. Overlying soft tissues appear unremarkable. IMPRESSION: No acute cardiopulmonary abnormality Reviewed by: Patrice Eric on 02/07/2021 1:13 AM [facility] Approved by: Patrice Eric on 02/07/2021 1:13 AM [facility] Station ID: [id number]
[2021-02-07] MEDS: LACTATED RINGERS 1,000 ML IV SCH (06:43)
[2021-02-07 07:48] LABS: CALCIUM 7.8 mg/dL (8.5-10.3); CREATININE 0.9 mg/dL (0.6-1.2); POTASSIUM 3.7 mmol/L (3.5-5.0)
[2021-02-07 08:06] LABS: BASOPHILS % (AUTO) 0.4 %; EOSINOPHILS % (AUTO) 0.4 %; HCT - HEMATOCRIT 22.3 % (42.0-52.0); HGB - HEMOGLOBIN 7.5 g/dL (14.0-18.0); LYMPHOCYTES # (AUTO) 1.6 10^3/uL (1.5-3.5); LYMPHOCYTES % (AUTO) 15.2 %; MEAN CORPUSCULAR HEMOGLOBIN 31.8 pg (27.0-31.0); MEAN CORPUSCULAR HGB CONC 33.6 g/dL (32.0-36.0); MEAN CORPUSCULAR VOLUME 94.5 fL (80.0-94.0); MEAN PLATELET VOLUME 10.8 fL (7.4-11.4); MONOCYTES # (AUTO) 0.7 10^3/uL (0.0-1.0); NEUTROPHILS # (AUTO) 8.3 10^3/uL (1.5-6.6); NEUTROPHILS % (AUTO) 77.1 %; PLT - PLATELET COUNT 156 10^3/uL (130-450); RED BLOOD COUNT 2.36 10^6/uL (4.70-6.10); RED CELL DISTRIBUTION WIDTH 12.8 % (12.0-15.0); WHITE BLOOD COUNT 10.8 x10^3/uL (4.8-10.8)
[2021-02-07 08:26] LABS: PSA FREE 0.06 ng/mL (0.16-2.81)
[2021-02-07 08:27] LABS: PSA TOTAL 0.15 ng/mL (0.000-2.000)
[2021-02-07] MEDS: PANTOPRAZOLE 40 MG VIAL IVP SCH (10:16)
[2021-02-07 12:58] LABS: HCT - HEMATOCRIT 22.7 % (42.0-52.0); HGB - HEMOGLOBIN 7.5 g/dL (14.0-18.0); MEAN CORPUSCULAR HEMOGLOBIN 31.8 pg (27.0-31.0); MEAN CORPUSCULAR VOLUME 96.2 fL (80.0-94.0); MEAN PLATELET VOLUME 10.3 fL (7.4-11.4); RED BLOOD COUNT 2.36 10^6/uL (4.70-6.10); RED CELL DISTRIBUTION WIDTH 12.8 % (12.0-15.0); WHITE BLOOD COUNT 10.7 x10^3/uL (4.8-10.8)
--- NOTE | 2021-02-07 14:51 | Discharge Plan ---
Discharge Plan Problem Reviewed?: Yes Disposition: Home, Self Care Condition: Fair Prescriptions: Pantoprazole [Protonix] 40 mg PO DAILY #30 tablet Diet: Regular Activity Restrictions: Activity as Tolerated Shower Restrictions: No Driving Restrictions: No Instruction Topics: Esophageal Ulcer Health Concerns: You presented to the emergency room with 2 problems. The first was dark stools for 2 to 3 days followed by vomiting of blood for that morning. When you were in the emergency room you passed out due to the low blood pressure. We thought you were having a stomach ulcer bleeding or esophageal bleeding. An endoscopy was done which is a video scope of your stomach and esophagus and we did find esophageal ulcers right between the esophagus and the stomach. You do have esophagitis which is inflammation of the esophagus and the biopsies are pending. Your stomach had no ulcers or bleeding. Normal amount of blood for a man is 14 g of hemoglobin and you drifted down to 7.5 g by the day of discharge. The second problem was that of lower pelvic pain and pain in the base of your testicles in the perineum. I made sure that there was no cancer with a CT scan of the pelvis and your prostate was normal size, bowel was normal there. And bladder was normal. You will need a an ultrasound of your testicles to make sure there is not something called a "varicocele" that is causing some of your pain. Plan of Treatment: 1. Unfortunately you cannot take any more nonsteroidals ever. You cannot take aspirin, Aleve, Naprosyn, ibuprofen, etc. 2. I would strongly suggest you not drink any alcohol for the next 3 to 6 months in order to let your esophagus heal. 3. Please see your [facility] In the next 1 to 2 weeks. They will need to refer you for: Follow-up with a surgeon to make sure you do not need a repeat endoscopy Reviewed the biopsy results of the esophagus to make sure there is no cancer or inflammation leading to cancer Repeat your cell count to make sure that the 7.5 g of hemoglobin is getting higher and better Follow-up on your possible prostate or base of testicle issues with an ultrasound of the testicles looking for a varicocele or epididymitis 4. I would recommend you take an iron supplement every day. I should warn you that iron will make your stools black and dark as well. So do not get alarmed. 5. Take Protonix which is an acid custom wood stair builder and ulcer healer. You will take it every day for the next 30 days. Again no alcohol or anti-inflammatory medicine. Care Goals: To heal the ulcers of your esophagus and to find out why you have such severe pelvic pain. Assessment: Patient understands care goals, repeated the goals to me, and will follow up with his [facility] base doctor. His prescriptions will be called into [facility] since the [facility] pharmacy is closed today and tomorrow. No Smoking: If you smoke, Please STOP! Call for help. Follow-up with: BRICE DOTY [Primary Care Provider] -
--- NOTE | 2021-02-07 15:05 | DISCHARGE SUMMARY ---
"Discharge Summary Admit Date: 02/06/21 Discharge Date: 02/07/21 Discharging Provider: Pauly Okeefe MD Primary Care Provider: Flavio Jean MD ([facility] [place]) Code Status: Attempt Resuscitation Condition at Discharge: Fair Discharge Disposition: 01 Home, Self Care - DIAGNOSES Discharge Diagnoses with Status of Each Condition: 1. Esophageal ulcer 2. Esophagitis 3. Hematemesis 4. Acute blood loss anemia 5. Pelvic pain in a male 6. Right posterior thigh skin tag - [facility] History of Present Illness: This is a 41-year-old active duty [employer] personnel who works on [employer]. 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 He drinks 2 glasses of wine a day. Does not smoke. Starting in August of this year began having urgency, frequency, and rectal pain. Pain in the perineum. He was treated as prostatitis by the ER and was seen in follow-up by the [facility]. Even though he took a month of antibiotics, he finds that he still has constant daily nagging pain in the perineum and base of his testicles. He describes it as the circular ring of a cough he can around the base of his testicles and that is where the pain is. It hurts to sit. It is enough of a discomfort that it has made him mildly depressed. Its affect his sex life with his . And is affected his marriage. He had blood work and a urinalysis done recently by the [facility] again in follow-up since he is still having that problem. He was put on Cipro and has been taking Naprosyn for the pain. About 3 days ago he started developing darker and darker stools. Yesterday diffuse generalized abdominal ache predominantly in the lower half of his abdomen. It hurt to lay down on his stomach last night. Yesterday his stool was melanotic. Today he has been vomiting and had an episode of vomiting blood. He came to the emergency room, and had an episode where his body stiffened, his eyes rolled back and he lost consciousness with urinary incontinence. It lasted a moment. There was no tonic-clonic movement. And he was immediately alert when he regained consciousness moments later. Temperature was 37. Heart rate 119. Blood pressure 105/69. Respirations 18. 99% on room air. After the episode of syncope they did orthostatics and his blood pressure was 134/72 supine. 125/77 sitting. And 117/66 standing. Heart rate for from 98 to then 109 to then 120. So he was orthostatic. He is alert and oriented. Obeying commands. Has normal bowel sounds. Is soft, nontender abdomen. No organomegaly. Hemoglobin was 10.7. 3 hours later was 10.0. We are asked to place him in observation status for ruling out a GI bleed, and for possible EGD with general surgery. The patient states he is never had problems with alcohol withdrawal, seizures, delirium tremens. - Past Medical History Cardiovascular: reports: None Respiratory: reports: None Neuro: reports: None Endocrine/Autoimmune: reports: None GI: reports: GERD (Daily indigestion getting worse over the last few weeks.) : reports: Other (Prostatitis August 2020) HEENT: reports: None Psych: reports: None Musculoskeletal: reports: None Derm: reports: Other (Skin tag right posterior thigh that has been present for years and getting larger) - CONSULTS | PROCEDURES Procedures: 1. Pelvis CT with a stable post vasectomy status. Bladder wall thickness was normal. Prostate was visualized as normal. No inguinal hernias. They recommended an outpatient ultrasound for varicocele. 2. Chest x-ray without acute cardiopulmonary abnormality 3. EGD done on the day of admission with mild gastritis, but no ulcers or bleeding from the stomach. Normal duodenum. No hiatal hernia. Small ulcer at the GE junction were clotted blood was seen. No active bleeding. Possible Edward's esophagus. Gastric inlet patch seen. Pathology is pending at the time of dis charge. - HOSPITAL COURSE Hospital Course: The patient presented as hematemesis and we were worried about an upper GI bleed from possible esophageal varices, or alcoholic gastritis. He appeared to have vasovagal syncope in the triage area while waiting to be seen. Blood pressure and pulse confirmed orthostatic hypotension. EGD was performed by [facility] and he was found to have distal esophageal ulcer. Fresh blood was in the distal esophagus. Stomach and antrum and duodenum appeared normal. There appeared to be patchy esophagitis that is possible Edward's esophagitis. Biopsies were done. At the time of this discharge the pathology is pending and not available. Patient had an initial hemoglobin of 10.7. He drifted down to 7.5 and was 7.5 at 7:30 in the morning and 1:00 in the afternoon on the day of discharge. The patient was instructed to avoid all nonsteroidal therapy, probably indefinitely. I also asked him not to drink any alcohol for 3 to 6 months. He currently drinks minimum of 2 large glasses of wine a day. I have also asked him to follow-up with the [facility] To make sure that the pathology is reviewed for his EGD. He needs to complete a minimum of 30 days of proton pump inhibitor. He may need to be referred back to general surgery for follow-up EGD. I have also asked the patient to take an iron tablet once a day for the next 60 days. At discharge she was alert, oriented. Pelvic pain had abated considerably since being in the hospital. He no longer had generalized anterior abdominal pain or nausea. He was discharged in stable condition.He does have a large pedunculated skin tag in the right posterior thigh. That can be removed in the outpatient setting. Discharge exam had a temperature of 36.9. Heart rate of 103. Blood pressure 136/59. Respirations 18. 94% on room air. He had a single solitary spike of temp erature to 39.1 at 1130 the night of admission after the EGD. There is no further recurrence of the fever. Head and neck were unremarkable. Supple neck, no goiter or bruits. Lungs were clear to auscultation and percussion. No crackles, rhonchi, wheezing. Slow, unlabored respiration with normal speech pattern. Regular rate and rhythm. No murmur. The abdomen was soft, slightly overweight, nontender, normal bowel sounds. No rebound or guarding. No hernias palpable. Extremities warm without clubbing cyanosis or edema and he ambulated in the room without any assistance back and forth to the bathroom and bed. - ALLERGIES Allergies/Adverse Reactions: Allergies Allergy/AdvReac Type Severity Reaction Status Date / Time No Known Drug Allergies Allergy Verified 02/06/21 12:23 - MEDICATIONS Home Medications: Ambulatory Orders Medication Instructions Recorded Confirmed Sulfamethox/Trimeth 800/160 1 tab PO BID 02/06/21 02/06/21 [Bactrim Ds] Pantoprazole [Protonix] 40 mg PO DAILY #30 tablet 02/07/21 - LABS Result Diagrams: 02/07/21 12:53 02/07/21 07:26"
[2021-02-07 16:35] VITALS: BP 132/70
--- NOTE | 2021-02-12 06:27 | ED Physician Documentation ---
ED Addendum - Addendum Addendum: 02/12/21 06:27 critical care time is 35 minutes
== END 2021-02-07 16:15 | disposition home or self-care (01) ==
LOC: ED 12:03 → MS2 15:46
PROVIDERS: ADMIT Specialist; ATTEND Specialist
PROC: 0DB78ZX Excision of Stomach, Pylorus, Via Natural or Artificial Opening Endoscopic, Diagnostic (ICD-10-PCS; 2021-02-06)
PROC: 0DB68ZX Excision of Stomach, Via Natural or Artificial Opening Endoscopic, Diagnostic (ICD-10-PCS; 2021-02-06)
PROC: 0DB38ZX Excision of Lower Esophagus, Via Natural or Artificial Opening Endoscopic, Diagnostic (ICD-10-PCS; 2021-02-06)
PROC: 0DB48ZX Excision of Esophagogastric Junction, Via Natural or Artificial Opening Endoscopic, Diagnostic (ICD-10-PCS; principal; 2021-02-06 17:15)
DX: K22.11 Ulcer of esophagus with bleeding (principal); K29.51 Unspecified chronic gastritis with bleeding; K21.9 Gastro-esophageal reflux disease without esophagitis; D62 Acute posthemorrhagic anemia; E66.9 Obesity, unspecified; L91.8 Other hypertrophic disorders of the skin; R10.2 Pelvic and perineal pain; R30.0 Dysuria; R35.0 Frequency of micturition; R39.15 Urgency of urination; Z20.822 Contact with and (suspected) exposure to COVID-19; Z68.32 Body mass index [BMI] 32.0-32.9, adult; Z80.42 Family history of malignant neoplasm of prostate; Z87.448 Personal history of other diseases of urinary system
CPT/HCPCS: 0202U; 36415; 43239; 71045; 72193; 80048; 80053; 80320; 81003; 83690; 84153; 84154; 85014; 85018; 85025; 85027; 85610; 85730; 86850; 86900; 86901; 86920; 87040; 96361; 96374; 99285; 99291; A9270; G0378; J7120; Q9967; 81001; 87086